=== PATIENT | female | born 1995 | race Two or more races ===

== ENCOUNTER 2021-03-26 12:32 | Emergency (ER) | payer OTHER ==
[~2021-03-26] VITALS: Ht 167.6 cm; Wt 60.3 kg
[2021-03-26 12:56] VITALS: BP 108/63
== END 2021-03-26 14:03 | disposition home or self-care (01) ==
LOC: ER 12:51
DX: J06.9 Acute upper respiratory infection, unspecified (principal); Z20.822 Contact with and (suspected) exposure to COVID-19
CPT/HCPCS: 87426; 99283; C9803